=== PATIENT | male | born 1950 | race Caucasian/White ===

== ENCOUNTER → 2018-07-20 | Outpatient (CLI) | payer MEDICARE, OTHER ==
[~2018-07-20] MED LIST: REGADENOSON 0.4 MG/5 ML PF SYG IVP SCH
== END | disposition home or self-care (01) ==
LOC: SHCH 08:52
PROVIDERS: ATTEND Internal Medicine Cardiovascular Disease
DX: I25.119 Atherosclerotic heart disease of native coronary artery with unspecified angina pectoris (principal)
CPT/HCPCS: 78452; 93017; 96374; A9500 ×2; J2785

== ENCOUNTER 2018-11-29 05:30 | Day surgery (SDC) | payer OTHER ==
[2018-11-26 10:50] VITALS: BP 153/72
[2018-11-26 11:10] LABS: BASOPHILS % (AUTO) 0.9 % (0.0-5.0); EOSINOPHILS % (AUTO) 2.4 % (0.0-8.0); HEMATOCRIT 31.8 % (42-54); LYMPHOCYTES % (AUTO) 14.9 % (21.0-51.0); MEAN CORPUSCULAR HEMOGLOBIN 29.4 pg (27.0-33.0); MEAN CORPUSCULAR HGB CONC 34.1 g/dL (32.0-36.0); MEAN CORPUSCULAR VOLUME 86.3 fL (79-99); MONOCYTES % (AUTO) 5.3 % (3.0-13.0); NEUTROPHILS % (AUTO) 76.5 % (40.0-77.0); PLATELET COUNT (AUTO) 230 K/uL (130-400); RED BLOOD CELL COUNT(AUTO) 3.68 MIL/uL (4.50-6.20); RED CELL DISTRIBUTION WIDTH 14.9 % (11.0-15.5); WHITE BLOOD COUNT (AUTO) 6.9 K/uL (4.8-10.8)
[2018-11-26 11:30] LABS: CREATININE 1.2 mg/dL (0.5-1.5); POTASSIUM 4.1 mmol/L (3.5-5.1)
[2018-11-26 11:43] LABS: APPEARANCE,URINE Clear (CLEAR); BILIRUBIN,URINE Negative (NEGATIVE); COLOR,URINE Yellow (YELLOW); GLUCOSE, URINE (UA) Negative (NEGATIVE); KETONES,URINE Negative (NEGATIVE); LEUKOCYTE ESTERASE ,URINE Negative (NEGATIVE); NITRATE,URINE Negative (NEGATIVE); OCCULT BLOOD,URINE Negative (NEGATIVE); PROTEIN,URINE Negative (NEGATIVE); UROBILINOGEN,URINE 0.2 mg/dL (0.2-1.0)
[2018-11-26 11:51] LABS: INR 0.99 (0.85-1.15); PARTIAL THROMBOPLASTIN TIME 26.6 SEC (26.3-35.5); PROTHROMBIN TIME 10.4 SEC (9.6-11.6)
--- NOTE | 2018-11-26 14:59 | NUR ---
LABS INFORMED Diamond JEONG OF ABNORMAL H&H. NO ORDERS RECEIVED. PROCEED WITH PLANNED PROCEDURE.
[~2018-11-29] VITALS: Ht 177.8 cm; Wt 108.0 kg
[2018-11-29] VITALS (10 sets, daily range): BP systolic 91–116; BP diastolic 50–67
[~2018-11-29 05:30] MED LIST changes: +ASPI-555 PO; +ATOR40TA71 PO; +FENO145T37 PO; +FINA5TAB41 PO; +GABA600T10 PO; +IMAT400T8 PO; +INSU100V12 SQ; +INSU10VI3 SQ; +ISOS60TA4 PO; +LISI10TA7 PO; +METF-446 PO; +METO100T14 PO; +NITR0.4T50 SL; +OMEP20TA25 PO; -REGADENOSON 0.4 MG/5 ML PF SYG IVP SCH; +SODIUM CHLORIDE 0.9% 500ML 500 ML IV SCH; +TAMS-1 PO; +TRAM50TA4 PO
[2018-11-29] MEDS ORDERED: SODIUM CHLORIDE 0.9% 1000ML 1,000 ML IV ONE (06:56)
[2018-11-29] MEDS ORDERED: MIDAZOLAM HCL 1 MG/ML 2ML VIAL ONE (07:10)
[2018-11-29] MEDS ORDERED: IOHEXOL-350 50ML VIAL IV ONE ×2 (07:10→08:05)
[2018-11-29] MEDS ORDERED: NITROGLYCERIN 5 MG/ML 10 ML VIAL IV ONE (07:10)
[2018-11-29] MEDS ORDERED: IOHEXOL 350 MG/ML 100ML INFUS..BTL IV ONE (07:10)
[2018-11-29] MEDS ORDERED: LIDOCAINE HCL 1% 20 ML VIAL ONE (07:10)
[2018-11-29] MEDS ORDERED: BIVALIRUDIN 250 MG/VIAL IV ONE (07:11)
[2018-11-29] MEDS ORDERED: ASPIRIN 325MG EC TAB 325 MG TABLET.DR PO ONE (08:12)
[2018-11-29] MEDS ORDERED: PRASUGREL HCL 10 MG TABLET ONE (08:12)
[2018-11-29] MEDS ORDERED: MORPHINE SULFATE 4 MG/1ML SYG ONE (08:29)
[2018-11-29] MEDS ORDERED: MORPHINE SULFATE 2 MG/ML 1ML SYG ONE (08:37)
[2018-11-29] MEDS ORDERED: SODIUM CHLORIDE 0.9% 1000ML 1,000 ML IV SCH (08:51)
[2018-11-29] MEDS ORDERED: DEXTROSE 50%-WATER 50 ML DISP.SYRIN IV PRN (09:00)
[2018-11-29] MEDS ORDERED: ONDANSETRON HCL 4 MG/2 ML VIAL IVP PRN (09:00)
[2018-11-29] MEDS ORDERED: INSULIN HUMULIN R 100 UNIT/ML 3ML SQ SCH (11:30)
--- NOTE | 2018-11-29 13:30 | NUR ---
D/C PT LEFT VIA WHEELCHAIR IN PVT CAR WITH CAREGIVER AND RX SCRIPT GIVEN TO PT. PT. STATED THAT HE COULDN'T NOT FIND HIS READING GLASSED UPON D/C. HOWEVER, UPON SIGNING FOR BELONGINGS WITH SECURITY EVERYTHING WAS IN HIS BAG WHEN PATIENT LOOKED.
--- NOTE | 2018-11-29 15:00 | NUR ---
POST DISCHARGE CARE Spoke to regarding discharge medications after speaking to [facility] pharmacist, Clem, and Adeline Cormier, CHRISTIANNE. Pt instructed to machine operator picker samples of Brilinta at [facility] in place of the Effient that was originally prescribed for him at time of discharge from the day surgery area. Pt stated that [facility] would visit [facility], 11/30/18. Pt has follow up appt with on 12/07/18.
== END 2018-11-29 13:30 | disposition home or self-care (01) ==
LOC: DAH 05:30
PROVIDERS: ATTEND Internal Medicine Cardiovascular Disease
DX: I25.118 Atherosclerotic heart disease of native coronary artery with other forms of angina pectoris (principal); I34.0 Nonrheumatic mitral (valve) insufficiency; E78.5 Hyperlipidemia, unspecified; I10 Essential (primary) hypertension; I25.2 Old myocardial infarction; N40.0 Benign prostatic hyperplasia without lower urinary tract symptoms; Z79.899 Other long term (current) drug therapy; Z79.4 Long term (current) use of insulin; Z98.890 Other specified postprocedural states; Z79.01 Long term (current) use of anticoagulants; Z68.34 Body mass index [BMI] 34.0-34.9, adult; E11.59 Type 2 diabetes mellitus with other circulatory complications
CPT/HCPCS: 36415 ×2; 71045; 80048; 81003; 82948 ×2; 85025; 85347; 85610; 85730; 93005 ×2; 93458; A4606; C1760; C1769; C1874; C1887; C1894 ×2; C9600; J0583; J1644; J2250; J2270; J3490; J7030; Q9965 ×2; Q9967 ×2; 99156; 99157

== ENCOUNTER → 2019-08-05 | Outpatient (CLI) | payer OTHER ==
[~2019-08-05] VITALS: Ht 177.8 cm; Wt 103.4 kg
[~2019-08-05] MED LIST changes: +FENO145T26 PO; -FENO145T37 PO; +REGADENOSON 0.4 MG/5 ML PF SYG IVP SCH; -SODIUM CHLORIDE 0.9% 500ML 500 ML IV SCH
== END | disposition home or self-care (01) ==
LOC: SHCH 08:30
PROVIDERS: ATTEND Internal Medicine Cardiovascular Disease
DX: R07.9 Chest pain, unspecified (principal)
CPT/HCPCS: 78452; 93017; 96374; A9500 ×2; J2785

== ENCOUNTER → 2020-07-10 | Outpatient (CLI) | payer OTHER ==
[~2020-07-10] MED LIST changes: -ASPI-555 PO; +ASPI-556 PO
== END | disposition home or self-care (01) ==
LOC: SHCH 07:47
PROVIDERS: ATTEND Internal Medicine Cardiovascular Disease
DX: I20.9 Angina pectoris, unspecified (principal); Z98.61 Coronary angioplasty status
CPT/HCPCS: 78452; 93017; 96374; A9500 ×2; J2785

== ENCOUNTER → 2022-09-16 | Outpatient (CLI) | payer OTHER ==
[~2022-09-16] MED LIST changes: +CARB-305 OU; +DICL100G31 TP; +EMPA25TA PO; +FURO20TA4 PO; +HYDR-3422 PO; +ICOS1CAP2 PO; -IMAT400T8 PO; +INSU100C6 SQ; -INSU10VI3 SQ; -ISOS60TA4 PO; +KETO-100 OP; +LISI10TA24 PO; -LISI10TA7 PO; +NALO4SPR3 NS; -NITR0.4T50 SL; -OMEP20TA25 PO; +PANT40TA54 PO; -REGADENOSON 0.4 MG/5 ML PF SYG IVP SCH
== END | disposition home or self-care (01) ==
LOC: RAH 13:09
PROVIDERS: ATTEND Internal Medicine Cardiovascular Disease
DX: I08.1 Rheumatic disorders of both mitral and tricuspid valves (principal); I50.9 Heart failure, unspecified
CPT/HCPCS: 93306

== ENCOUNTER → 2023-12-07 | Outpatient (CLI) | payer OTHER ==
[~2023-12-07] MED LIST changes: -DICL100G31 TP; +DICL100G60 TP; -NALO4SPR3 NS; +NALO4SPR5 NS
[2023-12-07] MEDS: REGADENOSON 0.4 MG/5 ML PF SYG IVP ONE (15:39)
== END | disposition home or self-care (01) ==
LOC: SHCH 08:09
PROVIDERS: ATTEND Internal Medicine Cardiovascular Disease
DX: I25.10 Atherosclerotic heart disease of native coronary artery without angina pectoris (principal); R06.09 Other forms of dyspnea
CPT/HCPCS: 78452; 96374; 93017; J2785; A9500 ×2

== ENCOUNTER → 2024-06-30 | Outpatient (CLI) | payer OTHER ==
[~2024-06-30] MED LIST changes: +CLOP-31 PO; +GABA-1405 PO; -GABA600T10 PO; +NALO4SPR22 NS; -NALO4SPR5 NS
[2024-06-30] MEDS: REGADENOSON 0.4 MG/5 ML PF SYG IVP ONE (11:37)
--- NOTE | 2024-06-30 18:27 | HMCSR ---
APPROVED REPORT Height: 5 ft 10in Weight: 244 lbs TEST INDICATIONS ATHSCL HRT DZ OF NTV COR ART W UNSP ANG PCT The imaging protocol used to acquire images was Rest Tc-99m/stress Tc-99m 1 day Consent: The procedure was explained and understood by the patient. Informerd consent was witnessed Bright Elder RN First, low dose rest was performed then high dose stress. RESTING DATA: The resting ekg shows: NSR, PVC, avR elevation, deep q wave with ST elevation inferiorly and lateral reciprocal changes, TWI v2-v6 Rest SPECT myocardial perfusion imaging was performed in supine position 59 minutes following the int ravenous injection of 10.5 mCi of Tc-99 Sestamibi. Time of rest injection: 08:35: Date: 06/30/2024 Time of rest imagin:34: Date: 06/30/2024 PHARMACOLOGIC STRESS: Pharmacologic stress test was performed by injecting regadenoson 0.4 mg IV push followed by the intra venous injection of 33.2 mCi of Tc-99 Sestamibi. Time of stress injection: 09:50: Date: 06/30/2024 Time of stress imagin:24: Date: 06/30/2024 Heart Rate at time of stress injection: 83 bpm. Gated Stress SPECT was performed 94 minutes after stress injection. The images were gated to evaluate regional wall motion and calculate left ventricular ejection fracti on. STRESS DETAILS Reason for Termination: Infusion complete Stress Symptoms: Dyspnea Max HR Achieved: 93 bpm % of APMHR Achieved: 63 Max Blood Pressure: 139/79 mmHg Stress ECG: NSR, PVC, avR elevation, deep q wave with ST elevation inferiorly and lateral reciprocal changes, TWI v2-v6 Study quality was good. Lung uptake was Normal. Artifact: No artifact IMPRESSION Abnormal pharmacologic nuclear stress test. Conclusion Moderate reversible septal anterior wall ischemia. Abnormal resting ECG. LVEF 61%.
== END | disposition home or self-care (01) ==
LOC: SHCH 08:22
PROVIDERS: ATTEND Internal Medicine Cardiovascular Disease
DX: I25.119 Atherosclerotic heart disease of native coronary artery with unspecified angina pectoris (principal); I99.8 Other disorder of circulatory system; R94.39 Abnormal result of other cardiovascular function study
CPT/HCPCS: 78452; 93017; J2785; A9500 ×2